=== PATIENT | female | born 1980 | race Caucasian/White ===

== ENCOUNTER 2016-09-25 21:11 | Emergency (ER) | payer OTHER ==
[~2016-09-25] VITALS: Ht 165.1 cm; Wt 85.0 kg
[2016-09-25] MEDS ORDERED: FERR325T40 PO (21:28)
[2016-09-25] MEDS ORDERED: NAPROXEN 250 MG TABLET PO ONE (23:30)
[2016-09-25] MEDS ORDERED: HYDROCODONE/ACETAMINOPHEN 5-325 MG TABLET PO ONE (23:30)
[2016-09-26 00:57] VITALS: BP 126/64
== END 2016-09-26 01:20 | disposition home or self-care (01) ==
LOC: EMS 21:13
DX: S13.9XXA Sprain of joints and ligaments of unspecified parts of neck, initial encounter (principal); S29.012A Strain of muscle and tendon of back wall of thorax, initial encounter; D64.9 Anemia, unspecified; Z79.899 Other long term (current) drug therapy; V09.9XXA Pedestrian injured in unspecified transport accident, initial encounter; Y93.89 Activity, other specified; Y99.8 Other external cause status; Y92.89 Other specified places as the place of occurrence of the external cause
CPT/HCPCS: 72070; 72125; 81025; 99284

== ENCOUNTER 2017-02-15 12:00 | Emergency (ER) | payer OTHER ==
[~2017-02-15] VITALS: Ht 157.5 cm; Wt 90.9 kg
[~2017-02-15 12:00] MED LIST: FERR-82 PO
[2017-02-15 12:44] VITALS: BP 120/74
[2017-02-15] MEDS ORDERED: LIDOCAINE HCL 5% TRANSDERMAL PATCH TD ONE (13:00)
[2017-02-15] MEDS ORDERED: IBUPROFEN 600 MG TABLET PO ONE (13:00)
== END 2017-02-15 15:27 | disposition home or self-care (01) ==
LOC: EMS 12:01
DX: M54.5 Low back pain (principal)
CPT/HCPCS: 72100; 81025; 99284